=== PATIENT | female | born 1935 | race Caucasian/White ===

== ENCOUNTER 2017-11-14 07:47 | Day surgery (SDC) | payer MEDICARE, OTHER ==
[~2017-11-14 07:47] MED LIST: LIDOCAINE HCL 1% MPF SOL ONE; PROPOFOL 500 MG/50 ML EMU IV ONE
[2017-11-14 10:21] VITALS: O2SAT 97
[2017-11-14 10:51] VITALS: BP 161/66; PULSE 59; RESP 18; TEMP 96.7
== END 2017-11-14 11:35 | disposition home or self-care (01) | DRG 951 ==
LOC: SURG 07:47
PROVIDERS: ATTEND Surgery
DX: Z12.11 Encounter for screening for malignant neoplasm of colon (principal); K57.30 Diverticulosis of large intestine without perforation or abscess without bleeding; K63.5 Polyp of colon; Z86.010 Personal history of colon polyps
CPT/HCPCS: J2001; J2704